=== PATIENT | male | born 1960 | race Caucasian/White ===

== ENCOUNTER 2022-06-27 13:48 | Outpatient (CLI) | payer BC, SELFPAY ==
--- NOTE | 2022-06-27 13:30 | ECG_ITS ---
Measurements Intervals [place] Rate: 88 P: 22 AK: 161 QRS: 74 QRSD: 91 T: 61 QT: 314 QTc: 382 Interpretive Statements SINUS RHYTHM BASELINE ARTIFACT- I, III, AVR, AVL, AVF, V2-V3 NORMAL ECG NO PREVIOUS ECG AVAILABLE FOR COMPARISON Electronically Signed On 06-27-2022 14:45:37 [employer] by Mervin Jimenez D.O.
[2022-06-27 16:08] LABS: Partial Thromboplastin Time 30.6 SECONDS (22.3-36.8); Prothrombin Time 12.3 Seconds (11.1-14.7)
[2022-06-27 16:12] LABS: Anion Gap 11 mmol/L (8-16); Blood Urea Nitrogen 15 mg/dL (9-20); Calcium 8.8 mg/dL (8.4-10.2); Carbon Dioxide 21 mmol/L (22-30); Chloride 106 mmol/L (98-107); Estimated Glomerular Filt Rate > 60; Glucose 116 mg/dL (65-110); Sodium 138 mmol/L (137-145)
== END 2022-06-27 13:49 | disposition home or self-care (01) ==
LOC: ANHSURGERY 13:54
PROVIDERS: Anesthesiology; PCP Internal Medicine; Visit Provider Urology
DX: N20.0 Calculus of kidney (principal); E11.9 Type 2 diabetes mellitus without complications; Z01.818 Encounter for other preprocedural examination
CPT/HCPCS: 36415; 80048; 85610; 85730; 87086; 93005

== ENCOUNTER 2022-07-01 00:39 | Day surgery (SDC) | payer BC, SELFPAY ==
[2022-05-11 12:10] VITALS: BMI 32.0
--- NOTE | 2022-05-11 12:34 | PC.NURSE ---
Report to the Outpatient Waiting Room, entrance under the green pavilion located off [facility], at time 0930 on date 05/20/22. OR Time: 1130. Time changes happen often and if your time is changed the preop area will call you the afternoon before. - You and your visitor will be asked to self-screen and do not enter if you have any COVID symptoms. - Only one visitor and NO children visitors are allowed at this time. - The patient visitor is requested to leave or wait in car when not with patient due to restrictions. - A mask is required within the hospital. Patients may have clear liquids (water, carbonated beverages, clear teas, apple juice) until 3 hours prior to surgery (0830) with a maximum of 20 ounces. - No food from midnight until time of surgery Take the following medications with a SIP of water the morning of surgery: NONE Medications to discontinue per physician: VITAMINS/SUPPLEMENTS Date to take last dose: 05/16/22 STOP CELEBREX AND BABY ASPIRIN 7 DAYS PRIOR TO SURGERY (LAST DOSE 05/12) Please no make-up, nail welsh, hairspray, perfume, deodorant, or body powder the day of surgery. No jewelry (including any body piercings) or valuables the day of surgery, leave them at home. Please take a shower or bath the night before, or the morning of, surgery with an antibacterial soap. Wear comfortable, loose fitting clothing. - Jewelry must be removed prior to entering the operating room. Rings and piercings that are not removed may be cut off. - The hospital will not accept responsibility for valuables. - Please leave all valuables, including medications, at home the day of surgery. If you are going home after surgery, a licensed chuck wagon driver must drive you home. - NO public transportation without another adult. - We recommend that an adult stay with you for 24 hours following discharge. - We also recommend that you do not drive, make important decision, drink alcoholic beverages, or take any drugs that were not prescribed by your health care provider for at least 24 hours after your discharge time. Follow any additional instructions given to you from your surgeon. If you or anyone in your household have experienced Covid symptoms in the past week, please notify your surgeon or the nurse liaison at the phone number below for possible testing. Telephone instructions given to PT - MICHOACANO CASTELLON and asked if any additional questions and then verbalized understanding. Patient advised to call surgeon office or pre surgery nurse liaison [phone] if any additional questions.
--- NOTE | 2022-06-23 07:30 | PM.HPGS ---
History of Present Illness History of Present Illness Consent: Risks, benefits, and alternatives have been discussed and questions answered. Patient agrees to proceed with procedure. Chief complaint: Sher Kidney Stones Narrative: Lan Thomas is a 61 year old male recently underwent imaging at [facility] in [place] for other reasons. This demonstrated a 5 mm calcified stone in his right kidney a 12 mm calcified stone in his left kidney. Both stones are nonobstructive. After resolution of other issues and discussion of options he has elected to proceed with cystoscopy left ureteral stent placement and left ESWL. He is aware the risk of this including, but not limited to, adverse cardiopulmonary events, persistent stone fragments that would require additional therapy and perinephric hematoma. Review of Systems Cardiovascular: Cardiovascular: Denies chest pain, Denies lightheadedness, Denies palpitations and Denies dyspnea Respiratory: Respiratory: Denies dyspnea Gastrointestinal: Gastrointestinal: Denies diarrhea, Denies nausea and Denies vomiting Genitourinary: Genitourinary: Denies hematuria and Denies dysuria Endocrine: Endocrine: Denies palpitations PMF Social History Social History Smoking packs per day: 1 Smoking cigarettes per day: 20.0 Years smoked: 30 Smoking pack-years: 30.00 Smoking status: Current every day smoker Tobacco type: cigarettes Alcohol intake: never Substance use: never Substance use type: does not use Living arrangements: alone Spiritual care concerns: No Meds Home Medications and Allergies Home Medications Medication Instructions Recorded Confirmed Type ascorbic acid (vitamin C) 500 mg 500 mg PO DAILY 05/11/22 05/11/22 History tablet (Vitamin C) aspirin 81 mg chewable tablet 81 mg PO HS 05/11/22 05/11/22 History celecoxib 200 mg capsule 200 mg PO DAILY 05/11/22 05/11/22 History coenzyme Q10 200 mg capsule (Co 200 mg PO DAILY 05/11/22 05/11/22 History Q-10) esomeprazole magnesium 40 mg 40 mg PO BID 05/11/22 05/11/22 History capsule,delayed release metformin 500 mg tablet,extended 1,000 mg PO BID 05/11/22 05/11/22 History release 24 hr nvyodqga-efp-lbjoc acid 300 1 tablet PO DAILY 05/11/22 05/11/22 History mcg-lycopene 600 mcg-lutein 300 mcg tablet (Centrum Silver Men) Allergies Allergy/AdvReac Type Severity Reaction Status Date / Time iohexol Allergy Rash Verified 05/11/22 12:07 [From contrast - CT, X-RAY] Exam Const: General: no acute distress Resp: Effort & Inspection: normal respiratory effort GI: Inspection: non-distended GI Palp: No abdominal tenderness and No Guarding due to palpation present (GI) Auscultation: normal bowel sounds Assessment and Plan Assessment and plan (1) Bilateral kidney stones: Code(s): N20.0 - Calculus of kidney Status: Acute Assessment and Plan: Right ESWL
[2022-06-23 14:37] VITALS: BMI 32.0
--- NOTE | 2022-06-23 14:40 | PC.NURSE ---
Report to the Outpatient Waiting Room, entrance under the green pavilion located off [facility], at time 0630 on date 07/01/22. Planned Procedure Time: 0830. Time changes happen often and if your time is changed the preop area will call you the afternoon before. - You and your visitor will be asked to self-screen and do not enter if you have any COVID symptoms. - We encourage only one visitor and NO visitors under age 16 are allowed at this time. Your visitor will receive communication by the phone number that is given day of service. - The patient visitor is requested to social distance or may leave the building when not with patient due to restrictions. - A mask is OPTIONAL within the hospital. Patients may have clear liquids (water, carbonated beverages, clear teas, apple juice) until 3 hours prior to surgery (0530) with a maximum of 20 ounces. - No food from midnight until time of surgery Take the following medications with a SIP of water the morning of surgery: NONE Medications to discontinue per physician: VITAMINS/SUPPLEMENTS Date to take last dose: 06/27/22 STOP CELEBREX AND BABY ASPIRIN 7 DAYS PRIOR TO PROCEDURE Please no make-up, nail korean, hairspray, perfume, deodorant, or body powder the day of surgery. No jewelry (including any body piercings) or valuables the day of surgery, leave them at home. Please take a shower or bath the night before, or the morning of, surgery with an antibacterial soap. Wear comfortable, loose fitting clothing. - Jewelry must be removed prior to entering the operating room. Rings and piercings that are not removed may be cut off. - The hospital will not accept responsibility for valuables. - Please leave all valuables, including medications, at home the day of surgery. If you are going home after surgery, a licensed regional driver must drive you home. - NO public transportation without another adult. - We recommend that an adult stay with you for 24 hours following discharge. - We also recommend that you do not drive, make important decision, drink alcoholic beverages, or take any drugs that were not prescribed by your health care provider for at least 24 hours after your discharge time. Follow any additional instructions given to you from your surgeon. If you or anyone in your household have experienced Covid symptoms in the past week, please notify your surgeon or the nurse liaison at the phone number below for possible testing. Telephone instructions given to ANNA CASTELLON and asked if any additional questions and then verbalized understanding. Patient advised to call surgeon office or pre surgery nurse liaison [phone] if any additional questions.
--- NOTE | 2022-06-30 14:42 | P.PNAN_ITS ---
Anes - Initial Pre Proc Eval Procedure: Operation Date: 07/01/22 08:30 Proposed Procedures p Left Extracorporeal Shock Wave Lithotripsy - Juvenal Coughlin MD s Cystoscopy, Left Stent Insertion - Juvenal Coughlin MD Date/Time: 06/30/22 14:42 Surgeon: Juvenal Coughlin MD Pre Op Diagnosis: Sher Kidney Stones Patient Data Age: 61 Gender: M Height: 1.83 m Weight: 107.05 kg Allergies Allergy/AdvReac Type Severity Reaction Status Date / Time iohexol Allergy Rash Verified 06/23/22 14:37 [From contrast - CT, X-RAY] Home Medications Medication Instructions Recorded Confirmed Type ascorbic acid (vitamin C) 500 mg 500 mg PO DAILY 05/11/22 06/23/22 History tablet (Vitamin C) aspirin 81 mg chewable tablet 81 mg PO HS 05/11/22 06/23/22 History celecoxib 200 mg capsule 200 mg PO DAILY 05/11/22 06/23/22 History coenzyme Q10 200 mg capsule (Co 200 mg PO DAILY 05/11/22 06/23/22 History Q-10) esomeprazole magnesium 40 mg 40 mg PO BID 05/11/22 06/23/22 History capsule,delayed release metformin 500 mg tablet,extended 1,000 mg PO BID 05/11/22 06/23/22 History release 24 hr njsivejv-vct-rmwvg acid 300 1 tablet PO DAILY 05/11/22 06/23/22 History mcg-lycopene 600 mcg-lutein 300 mcg tablet (Centrum Silver Men) Patient hx anesthesia problems: none Family hx anesthesia problems: none Results Review: All pre-operative results and documents have been reviewed as part of the pre- operative evaluation. [facility] Past Medical History Medical History Diabetes Melanoma JENNY (obstructive sleep apnea) Smoker Social History Social History Smoking packs per day: 1 Smoking cigarettes per day: 20.0 Years smoked: 30 Smoking pack-years: 30.00 Smoking status: Current every day smoker Tobacco type: cigarettes Alcohol intake: never Substance use: never Substance use type: does not use Living arrangements: alone Spiritual care concerns: No Anes - Eval Final PreProcedure Day of Procedure 06/30/22 14:42 Patient weight: obese Heart: regular rate and rhythm Lungs: clear to auscultation and normal air movement Airway: Mallampati scale class II Neurological: alert and oriented Last oral intake: >/= 8 hours ASA classification: III Emergent: no Anesthetic plan: proceed Anesthesia type and monitoring: general LMA Results Review: All pre-operative results and documents have been reviewed as part of the pre- operative evaluation. Informed Consent: The patient's anesthetic plan and its attendant risks and benefits were discussed with the patient/family/POA. Questions were solicited and answers provided to the satisfaction of the patient/family/POA.
[2022-07-01] VITALS (9 sets, daily range): BP systolic 102–164; BP diastolic 76–89; PULSE 68–89; RESP 16–23; TEMP 36.1–36.6; O2SAT 96–100
--- NOTE | ~2022-07-01 | XR_ITS ---
EXAMINATION: XR abdomen/kub 1V DATE: 07/01/2022 06:44 INDICATION: Kidney stone. TECHNIQUE: A supine view of the abdomen on 2 radiographs was obtained. COMPARISON: None. FINDINGS: There are no dilated loops of bowel. A 2 mm calcification overlies right kidney that may be a stone. There are approximately 7 calcifications overlying left kidney measuring up to 14 mm, consi stent with stones. IMPRESSION: 1. Bilateral kidney stones. Reviewed, dictated and finalized at location A. TENDER IMPRESSION: 1. Bilateral kidney stones.
[2022-07-01] MEDS: LACTATED RINGERS 1,000 ML 30 ML IV CONT (07:25)
[2022-07-01 07:32] LABS: Glucose Point of Care 157 mg/dl (65-105)
--- NOTE | 2022-07-01 08:30 | WPDHPUPDATE1 ---
History and Physical Update Update Date/Time: 07/01/22 08:30 History and Physical has been reviewed, including an updated exam of the patient. There are NO changes in the patient's condition. Risks, benefits, and alternatives have been discussed and questions answered. Patient agrees to proceed with procedure.
[2022-07-01] MEDS: ceFAZolin 2 GM/D5W 50 ML 2 GM/50 ML BAG IVPB (08:34)
--- NOTE | 2022-07-01 08:52 | W.PM.PROC2 ---
Procedure Note - Detailed Date of Procedure 07/01/22 Pre-op Diagnosis Sher Kidney Stones Post-op Diagnosis Same Procedure Performed Cystoscopy, left ureteral stent placement and left ESWL Surgeon Juvenal Coughlin MD Anesthesia General Description of Procedure The patient was brought to the operative suite where he was placed in the supine position on the Dornier lithotripter table. Flexible cystoscopy was undertaken with a 16F flexible cystoscopy. There were no urethral strictures. The prostatic urethra estimated length was []cm. There was mild obstruction of the prostatic urethra with no median lobe enlargement. The bladder mucosa was normal and there was a single, orthotopic ureteral orifice bilaterally. A 0.035 glidewire was advanced into the left renal pelvis under fluoroscopy. A 4.8F J-J ureteral stent was positioned with the proximal coil in the renal pelvis and the distal coil in the bladder. The patient was then repositioned in the supine position with the focal point of the lithotriptor on a 6-7mm left mid-ureteral calculus. A total of 2500 shocks were delivered at a power setting of 4. There appeared to be good fragmentation of the stone. The patient tolerated the procedure well and was taken to the recovery room in good condition. Drains Yes Packing No Pathology None sent Complications No immediate complications Condition Stable Disposition PACU
--- NOTE | 2022-07-01 09:23 | SUR.OPER ---
Pettichae present to left flank
[2022-07-01 09:31] LABS: Glucose Point of Care 161 mg/dl (65-105)
--- NOTE | 2022-07-01 11:41 | SUR.PHASEII ---
Vital signs stable, IV removed. Patient waiting on his sister to pick him up from hospital.
== END 2022-07-01 12:15 | disposition home or self-care (01) ==
PROVIDERS: PCP Internal Medicine; Visit Provider Urology
PROC: (CPT 50590; principal; 2022-07-01 08:30)
PROC: (CPT 52352; 2022-07-01 08:30)
DX: N20.0 Calculus of kidney (principal); E11.9 Type 2 diabetes mellitus without complications; G47.33 Obstructive sleep apnea (adult) (pediatric); F17.210 Nicotine dependence, cigarettes, uncomplicated; Z85.820 Personal history of malignant melanoma of skin; E66.9 Obesity, unspecified; Z68.31 Body mass index [BMI] 31.0-31.9, adult; Z79.84 Long term (current) use of oral hypoglycemic drugs; Z79.82 Long term (current) use of aspirin
CPT/HCPCS: 52332; 50590; 74018; 82948; A9270; C1758; C1769; C2617; J0690; J1100; J2250; J2405; J2704; J3010; J7030; J7120

== ENCOUNTER 2022-07-15 13:12 | Outpatient (CLI) | payer BC, SELFPAY ==
--- NOTE | ~2022-07-15 | XR_ITS ---
XR abdomen/kub 1V 07/15/2022 13:33 Indication: Left renal stones. Procedure: KUB Comparison: 07/01/2022 Findings: There are left renal stones. There is a left internal ureteral stent. There is a calcificat ion in the left pelvis which could represent a distal ureteral stone adjacent to the stent. Bowel gas pattern nonobstructive. There is osteoarthritis of the hips. Impression: 1: Left nephrolithiasis. Possible distal left ureteral stone adjacent to internal ureteral stent near the expected location of the left UVJ. Reviewed, dictated and finalized at location A. SHER DENTURE Impression: 1: Left nephrolithiasis. Possible distal left ureteral stone adjacent to education intern al ureteral stent near the expected location of the left UVJ.
== END 2022-07-15 13:13 | disposition home or self-care (01) ==
PROVIDERS: PCP Internal Medicine; Visit Provider Urology
DX: N20.0 Calculus of kidney (principal)
CPT/HCPCS: 74018